=== PATIENT | male | born 1940 | race Hispanic/Latino ===

== ENCOUNTER → 2018-07-15 | Outpatient (CLI) | payer OTHER | END | disposition home or self-care (01) | LOC: RAH 08:38 | PROVIDERS: ATTEND Family Medicine | DX: I31.3 Pericardial effusion (noninflammatory) (principal); E11.51 Type 2 diabetes mellitus with diabetic peripheral angiopathy without gangrene; I12.9 Hypertensive chronic kidney disease with stage 1 through stage 4 chronic kidney disease, or unspecified chronic kidney disease; E11.22 Type 2 diabetes mellitus with diabetic chronic kidney disease; N18.9 Chronic kidney disease, unspecified | CPT/HCPCS: 93306; 93925; 93970 ==

== ENCOUNTER → 2018-08-18 | Outpatient (CLI) | payer OTHER | END | disposition home or self-care (01) | LOC: SHCH 14:22 | PROVIDERS: ATTEND Internal Medicine Cardiovascular Disease | DX: I73.9 Peripheral vascular disease, unspecified (principal) | CPT/HCPCS: 93970 ==

== ENCOUNTER → 2018-08-19 | Outpatient (CLI) | payer OTHER ==
[~2018-08-19] MED LIST: IOHEXOL-350 50ML VIAL IV ONE; IOHEXOL-350 75 ML VIAL IV ONE
== END | disposition home or self-care (01) ==
LOC: RAH 07:21
PROVIDERS: ATTEND Internal Medicine Cardiovascular Disease
DX: I70.0 Atherosclerosis of aorta (principal); I87.2 Venous insufficiency (chronic) (peripheral); I10 Essential (primary) hypertension
CPT/HCPCS: 75635; Q9967 ×2

== ENCOUNTER 2018-08-31 07:02 | Day surgery (SDC) | payer OTHER ==
[2018-08-28 15:01] LABS: HEMATOCRIT 33.8 % (42-54); LYMPHOCYTES % (AUTO) 23.9 % (21.0-51.0); MEAN CORPUSCULAR HEMOGLOBIN 31.7 pg (27.0-33.0); MEAN CORPUSCULAR HGB CONC 34.5 g/dL (32.0-36.0); MEAN CORPUSCULAR VOLUME 91.8 fL (79-99); MONOCYTES % (AUTO) 7.7 % (3.0-13.0); NEUTROPHILS % (AUTO) 61.4 % (40.0-77.0); PLATELET COUNT (AUTO) 155 K/uL (130-400); RED BLOOD CELL COUNT(AUTO) 3.68 MIL/uL (4.50-6.20); RED CELL DISTRIBUTION WIDTH 14.5 % (11.0-15.5); WHITE BLOOD COUNT (AUTO) 4.1 K/uL (4.8-10.8)
[2018-08-28 15:09] LABS: APPEARANCE,URINE Clear (CLEAR); BILIRUBIN,URINE Negative (NEGATIVE); COLOR,URINE Yellow (YELLOW); GLUCOSE, URINE (UA) Negative (NEGATIVE); KETONES,URINE Negative (NEGATIVE); LEUKOCYTE ESTERASE ,URINE Negative (NEGATIVE); NITRATE,URINE Negative (NEGATIVE); OCCULT BLOOD,URINE Negative (NEGATIVE); PROTEIN,URINE 300 mg/dL (NEGATIVE); UROBILINOGEN,URINE 0.2 mg/dL (0.2-1.0)
[2018-08-28 15:15] LABS: CREATININE 1.2 mg/dL (0.5-1.5); POTASSIUM 5.2 mmol/L (3.5-5.1)
[2018-08-28 15:16] LABS: INR 1.02 (0.85-1.15); PARTIAL THROMBOPLASTIN TIME 31.5 SEC (26.3-35.5); PROTHROMBIN TIME 10.7 SEC (9.6-11.6)
[2018-08-28 15:21] LABS: BACTERIA,URINE Rare /HPF (None Seen); RBC,URINE 0-1 /HPF (0-1); SQUAMOUS EPITHELIAL CELL,UR Rare /HPF (0-2); WBC,URINE 0-1 /HPF (0-1)
[2018-08-28 15:25] VITALS: BP 171/70
--- NOTE | 2018-08-28 16:24 | NUR ---
NO BLOOD INFORMED JOSE KEARNS PT IS JEHOVAH WITNESS. NO ORDERS RECEIVED. PROCEED WITH PLANNED PROCEDURE.
[~2018-08-31] VITALS: Ht 167.6 cm; Wt 83.6 kg
[2018-08-31] VITALS (10 sets, daily range): BP systolic 118–152; BP diastolic 62–71
[~2018-08-31 07:02] MED LIST changes: +CILO100T PO; +GLIM4TAB3 PO; +IBUP-2071 PO; -IOHEXOL-350 50ML VIAL IV ONE; -IOHEXOL-350 75 ML VIAL IV ONE; +LEVO75TA10 PO; +LISI10TA7 PO; +PIOG15TA66 PO; +SIMV40TA5 PO; +SODIUM CHLORIDE 0.9% 500ML 500 ML IV SCH; +TERA5CAP4 PO
[2018-08-31] MEDS ORDERED: SODIUM CHLORIDE 0.9% 1000ML 1,000 ML IV ONE (07:20)
[2018-08-31] MEDS ORDERED: HEPARIN SODIUM 1000UNIT/ML 10ML VIAL ONE (10:57)
[2018-08-31] MEDS ORDERED: LIDOCAINE HCL 1% 20 ML VIAL ONE (10:57)
[2018-08-31] MEDS ORDERED: MIDAZOLAM HCL 1 MG/ML 2ML VIAL ONE (10:58)
[2018-08-31] MEDS ORDERED: IODIXANOL 320 MG/ML 100 ML VIAL ONE (10:58)
[2018-08-31] MEDS ORDERED: NITROGLYCERIN 5 MG/ML 10 ML VIAL IV ONE (10:58)
[2018-08-31] MEDS ORDERED: FENTANYL CITRATE PF 50 MCG/1 ML 2ML VIAL ONE (10:58)
[2018-08-31] MEDS ORDERED: LABETALOL HCL 5 MG/ML 20ML VIAL IV ONE (11:43)
[2018-08-31] MEDS ORDERED: SODIUM CHLORIDE 0.9% 1000ML 1,000 ML IV SCH (12:30)
[2018-08-31] MEDS ORDERED: DEXTROSE 50%-WATER 50 ML DISP.SYRIN IV PRN (12:30)
[2018-08-31] MEDS ORDERED: HYDRALAZINE HCL 20 MG/ML VIAL IV PRN (12:30)
[2018-08-31] MEDS ORDERED: METOPROLOL TARTRATE 1 MG/ML 5ML VIAL IV PRN (12:30)
[2018-08-31] MEDS ORDERED: GLUCAGON 1MG KIT 1 MG ML IM PRN (12:30)
[2018-08-31] MEDS ORDERED: ACETAMINOPHEN-CODEINE 300/30MG TAB PO PRN (12:30)
[2018-08-31] MEDS ORDERED: CLOPIDOGREL BISULFATE 300 MG TAB ONE (12:30)
[2018-08-31] MEDS ORDERED: ASPIRIN 81MG TAB.CHEW ONE ×2 (12:30→12:31)
--- NOTE | 2018-08-31 12:50 | NUR ---
TEACHING PT AND FAMILY VERBALIZES UNDERSTANDING .
--- NOTE | 2018-08-31 12:50 | NUR ---
TEACHING PATIENT TEACHING AND FAMILY MEMBER ON IMPORTANCE OF BEDREST TO PREVENT BLEEDING FROM LEFT GROIN.
[2018-08-31] MEDS ORDERED: CLOP75TA14 PO ×2 (14:25→14:26)
[2018-08-31] MEDS ORDERED: ASPI-555 PO (14:26)
[2018-08-31] MEDS ORDERED: INSULIN HUMULIN R 100 UNIT/ML 3ML SQ SCH (16:30)
--- NOTE | 2018-08-31 16:54 | NUR ---
D/C PT DISCHARGED VIA IN WHEEL CHAIR, PRIVATE CAR, NO BLEEDING, HEMATOMA AND OR PAIN. NO CHEST PAIN OR SOB.
[2018-09-01] MEDS ORDERED: ASPIRIN 81MG TAB.CHEW PO SCH (09:00)
[2018-09-01] MEDS ORDERED: CLOPIDOGREL BISULFATE 75 MG TAB PO SCH (09:00)
== END 2018-08-31 16:50 | disposition home or self-care (01) ==
LOC: DAH 07:02
PROVIDERS: ATTEND Internal Medicine Cardiovascular Disease
DX: I70.213 Atherosclerosis of native arteries of extremities with intermittent claudication, bilateral legs (principal); Z79.899 Other long term (current) drug therapy; Z79.82 Long term (current) use of aspirin; E78.5 Hyperlipidemia, unspecified; E11.51 Type 2 diabetes mellitus with diabetic peripheral angiopathy without gangrene; I12.9 Hypertensive chronic kidney disease with stage 1 through stage 4 chronic kidney disease, or unspecified chronic kidney disease; E11.22 Type 2 diabetes mellitus with diabetic chronic kidney disease; N18.9 Chronic kidney disease, unspecified; E11.42 Type 2 diabetes mellitus with diabetic polyneuropathy; Z83.3 Family history of diabetes mellitus
CPT/HCPCS: 36415; 37226; 71045; 75716; 80048; 81001; 82948 ×2; 85025; 85610; 85730; 93005; A4606; C1725; C1760; C1769; C1874; C1887; C1893; C1894 ×2; J1644 ×2; J3490 ×2; J7030; Q9967; 75774; J2250; J3010

== ENCOUNTER → 2018-12-01 | Outpatient (CLI) | payer OTHER ==
[~2018-12-01] MED LIST changes: +CLOP75TA32 PO; -IBUP-2071 PO; -LISI10TA7 PO; -SODIUM CHLORIDE 0.9% 500ML 500 ML IV SCH
== END | disposition home or self-care (01) ==
LOC: SHCH 10:00
PROVIDERS: ATTEND Internal Medicine Cardiovascular Disease
DX: I73.9 Peripheral vascular disease, unspecified (principal)
CPT/HCPCS: 93925

== ENCOUNTER 2021-08-26 14:30 | Emergency (ER) | payer MEDICARE, OTHER ==
[~2021-08-26] VITALS: Ht 167.6 cm; Wt 77.1 kg
[~2021-08-26 14:30] MED LIST changes: -GLIM4TAB3 PO; +GLIM4TAB36 PO; +SIMV-46 PO; -SIMV40TA5 PO
[2021-08-26] MEDS ORDERED: ACETAMINOPHEN 500 MG TABLET PO ONE (16:00)
[2021-08-26 16:14] VITALS: BP 162/68
[2021-08-26] MEDS ORDERED: NAPR-1196 PO (16:33)
[2021-08-26] MEDS ORDERED: CYCL10TA16 PO (16:33)
[2021-08-26] MEDS ORDERED: NAPROXEN 250 MG TAB ONE (16:41)
[2021-08-26] MEDS ORDERED: NAPROXEN 500 MG TABLET PO ONE (17:00)
== END 2021-08-26 16:54 | disposition home or self-care (01) ==
LOC: EDH 14:30
DX: S39.012A Strain of muscle, fascia and tendon of lower back, initial encounter (principal); G89.29 Other chronic pain; E11.9 Type 2 diabetes mellitus without complications; E78.00 Pure hypercholesterolemia, unspecified; I10 Essential (primary) hypertension; Z79.1 Long term (current) use of non-steroidal anti-inflammatories (NSAID); Z79.84 Long term (current) use of oral hypoglycemic drugs; Z79.899 Other long term (current) drug therapy; Z90.49 Acquired absence of other specified parts of digestive tract; X58.XXXA Exposure to other specified factors, initial encounter; Y93.89 Activity, other specified; Y92.89 Other specified places as the place of occurrence of the external cause; Y99.8 Other external cause status
CPT/HCPCS: 74176

== ENCOUNTER → 2024-12-08 | Outpatient (CLI) | payer OTHER ==
[~2024-12-08] MED LIST changes: -CILO100T PO; +CILO100T3 PO; +CYCL10TA16 PO; +NAPR-1196 PO
--- NOTE | 2024-12-08 15:10 | HMCIMG ---
EXAM: CT Abdomen and Pelvis Without IV contrast CLINICAL HISTORY: RENAL COLIC ON LEFT SIDE TECHNIQUE: Axial computed tomography images of the abdomen and pelvis without intravenous contrast. CONTRAST: No IV contrast. COMPARISON: CT dated 08/26/21 FINDINGS: Lung Bases: Small pericardial effusion. Atherosclerosis of the coronary arteries and thoracic aorta. No focal pulmonary consolidation or mass. No evidence of pneumothorax. Liver: Liver margin appears mildly irregular. Liver size is within normal limits. No focal hepatic lesion or intrahepatic biliary dilatation. Gallbladder: The gallbladder is well distended. Similar multiple tiny calcific foci present in the neck of the gallbladder, average size 9 x 8 mm. No gallbladder wall thickening or pericholecystic fluid. Bile Ducts: Unremarkable. Pancreas: The pancreas is normal in size and contour. No focal lesion or peripancreatic collection. Spleen: Spleen is normal in size and homogeneous in attenuation. No focal lesion. Adrenal Glands: Both adrenal glands are normal in size and morphology. No focal mass or enlargement. Kidneys: There is mild bilateral perinephric fat stranding suggesting renal parenchymal disease, clinical correlation is advised. No hydronephrosis or renal mass. No radiopaque calculus appreciated within either kidney, along the course of either ureter, or within the bladder. There is no hydronephrosis. Bladder: The urinary bladder is normal in wall thickness and contour. Median lobe projection of the prostate into the bladder by approximately 1.5 cm. No intraluminal mass or calculus. Stomach /T/ Bowel: Stomach and visualized bowel loops are normal in caliber and wall thickness. No evidence of obstruction, mass, or inflammatory changes. Appendix: The appendix is normal in caliber and appearance. No periappendiceal inflammatory changes. Peritoneum: No evidence of ascites or peritoneal thickening. Lymph Nodes: No significant abdominopelvic lymphadenopathy. Reproductive Organs: The prostate is mildly enlarged, measuring 25 cc in volume, likely borderline prostatomegaly. Seminal vesicles and other pelvic reproductive structures are normal in appearance. Vasculature: Atherosclerotic changes present with vessel wall calcification involving the abdominal aorta and its visceral branches, bilateral iliac vessels, and the visualized artery of the bilateral lower lobe. No aneurysm or vascular malformation. Bones: Degenerative changes are present in the spine with multilevel vacuum phenomena. No destructive bony lesion or fracture. Spondylosis throughout the axial skeleton. Mild grade 1 anterolisthesis of L4 with respect L5. Laminectomy defects at L3-L5. IMPRESSION: 1. No acute intraabdominal or pelvic pathology. 2. Small pericardial effusion. 3. Mild bilateral perinephric fat stranding, suggesting renal parenchymal disease. No radiopaque renal calculus or hydronephrosis. /[place]
== END | disposition home or self-care (01) ==
LOC: RAH 13:12
PROVIDERS: ATTEND Internal Medicine
DX: N40.0 Benign prostatic hyperplasia without lower urinary tract symptoms (principal); I70.0 Atherosclerosis of aorta; I31.39 Other pericardial effusion (noninflammatory); N32.89 Other specified disorders of bladder; M47.817 Spondylosis without myelopathy or radiculopathy, lumbosacral region; M43.16 Spondylolisthesis, lumbar region; N23 Unspecified renal colic; J44.9 Chronic obstructive pulmonary disease, unspecified; E11.22 Type 2 diabetes mellitus with diabetic chronic kidney disease; N18.32 Chronic kidney disease, stage 3b; R54 Age-related physical debility; I73.9 Peripheral vascular disease, unspecified; E79.0 Hyperuricemia without signs of inflammatory arthritis and tophaceous disease; D64.9 Anemia, unspecified; E03.9 Hypothyroidism, unspecified; R30.0 Dysuria
CPT/HCPCS: 74176